=== PATIENT | female | born 1975 | race Hispanic/Latino ===

== ENCOUNTER → 2017-07-14 | Outpatient (CLI) | payer BC, SELFPAY | END | disposition home or self-care (01) | LOC: RAH 07:52 | PROVIDERS: ATTEND Internal Medicine | DX: M54.2 Cervicalgia (principal) | CPT/HCPCS: 72141 ==

== ENCOUNTER 2020-12-11 08:54 | Day surgery (SDC) | payer BC ==
[2020-12-05 12:35] LABS: BASOPHILS % (AUTO) 0.4 % (0.0-5.0); HEMATOCRIT 36.2 % (36-48); LYMPHOCYTES % (AUTO) 24.2 % (21.0-51.0); MEAN CORPUSCULAR HEMOGLOBIN 27.2 pg (27.0-33.0); MEAN CORPUSCULAR VOLUME 84.8 fL (79-99); MONOCYTES % (AUTO) 4.7 % (3.0-13.0); NEUTROPHILS % (AUTO) 69.4 % (40.0-77.0); PLATELET COUNT (AUTO) 434 K/uL (130-400); RED BLOOD CELL COUNT(AUTO) 4.27 MIL/uL (4.00-5.50); RED CELL DISTRIBUTION WIDTH 15.3 % (11.0-15.5); WHITE BLOOD COUNT (AUTO) 9.7 K/uL (4.8-10.8)
[2020-12-05 12:47] LABS: INR 0.97 (0.85-1.15); PROTHROMBIN TIME 10.6 SEC (9.6-11.6)
[2020-12-05 12:49] LABS: PARTIAL THROMBOPLASTIN TIME 29.7 SEC (26.3-35.5)
[2020-12-05 12:51] LABS: ALBUMIN 3.8 g/dL (3.5-5.0); BILIRUBIN,TOTAL 0.3 mg/dL (0.2-1.0); CREATININE 0.7 mg/dL (0.5-1.5); POTASSIUM 3.7 mmol/L (3.5-5.1)
[2020-12-10 09:51] VITALS: BP 158/84
[~2020-12-11] VITALS: Ht 149.9 cm; Wt 82.1 kg
[2020-12-11] VITALS (24 sets, daily range): BP systolic 108–140; BP diastolic 59–87
[~2020-12-11 08:54] MED LIST: ARNICA PO; CEFAZOLIN SODIUM 1 GM VIAL IVP SCH; CETI-89 PO; COLLAGEN PO; LOSA50TA64 PO; METRONIDAZOLE 500MG/100ML BAG 100 ML IVPB SCH; MVI PO; PHENAZOPYRIDINE HCL 200 MG TABLET PO SCH
[2020-12-11] MEDS ORDERED: LACTATED RINGERS 1000ML 1,000 ML IV ONE (09:22)
[2020-12-11] MEDS ORDERED: SCOPOLAMINE HYDROBROMIDE 1 EACH ADH..PATCH TD ONE (11:37)
[2020-12-11] MEDS ORDERED: LIDOCAINE PF 100MG/5ML (2%) SYRINGE 5ML ONE (11:41)
[2020-12-11] MEDS ORDERED: SUCCINYLCHOLINE 200MG/10ML SYR ONE (11:41)
[2020-12-11] MEDS ORDERED: PROPOFOL 10 MG/ML 20ML VIAL IV ONE (11:41)
[2020-12-11] MEDS ORDERED: FENTANYL CITRATE PF 50 MCG/1 ML 2ML VIAL ONE (11:41)
[2020-12-11] MEDS ORDERED: BUPIVACAINE LIPOSOME/PF 266 MG/20 ML ML IJ SCH (12:00)
[2020-12-11] MEDS ORDERED: MEPERIDINE-PF 25 MG/ML SYG ONE ×3 (14:00→15:10)
[2020-12-11] MEDS ORDERED: KETOROLAC 30MG VIAL (30MG/ML) ONE (14:27)
[2020-12-11] MEDS ORDERED: NEOSTIGMINE 5MG/5ML SYR IV ONE (14:27)
[2020-12-11] MEDS ORDERED: GLYCOPYRROLATE 1 MG/5 ML SYRINGE ONE (14:29)
[2020-12-11] MEDS ORDERED: ONDANSETRON 4MG INJ ONE (16:10)
[2020-12-11] MEDS ORDERED: ACETAMINOPHEN 500 MG TABLET ONE (16:10)
[2020-12-11] MEDS ORDERED: MORPHINE 10MG VIAL ONE (16:10)
== END 2020-12-11 18:15 | disposition home or self-care (01) ==
LOC: DAH 08:54
PROVIDERS: ATTEND Obstetrics & Gynecology
DX: N93.9 Abnormal uterine and vaginal bleeding, unspecified (principal); Z20.822 Contact with and (suspected) exposure to COVID-19; D25.9 Leiomyoma of uterus, unspecified; N72 Inflammatory disease of cervix uteri; N88.8 Other specified noninflammatory disorders of cervix uteri; I10 Essential (primary) hypertension; J45.909 Unspecified asthma, uncomplicated; E66.9 Obesity, unspecified; E11.9 Type 2 diabetes mellitus without complications; M79.7 Fibromyalgia; Z79.01 Long term (current) use of anticoagulants; Z90.49 Acquired absence of other specified parts of digestive tract; Z98.890 Other specified postprocedural states; Z83.3 Family history of diabetes mellitus; Z82.49 Family history of ischemic heart disease and other diseases of the circulatory system; Z80.0 Family history of malignant neoplasm of digestive organs; Z80.1 Family history of malignant neoplasm of trachea, bronchus and lung; Z98.891 History of uterine scar from previous surgery; Z79.899 Other long term (current) drug therapy
CPT/HCPCS: 58571; S2900; 36415; 80053; 84703; 85025; 85610; 85730; 86850; 86900; 86901; 87635; 96374; 96375; A4344; C9290; C9803; J0330; J0690; J1885; J2001; J2175; J2270; J2405; J2704; J2710; J3010; J3490; J7030; J7120

== ENCOUNTER 2023-08-21 05:31 | Emergency (ER) | payer BC ==
[~2023-08-21] VITALS: Ht 149.9 cm; Wt 80.7 kg
[~2023-08-21 05:31] MED LIST changes: -CEFAZOLIN SODIUM 1 GM VIAL IVP SCH; -METRONIDAZOLE 500MG/100ML BAG 100 ML IVPB SCH; -PHENAZOPYRIDINE HCL 200 MG TABLET PO SCH
[2023-08-21] MEDS ORDERED: LOSA50TA64 PO (05:41)
[2023-08-21] MEDS ORDERED: LISD20CA PO (05:42)
[2023-08-21] MEDS ORDERED: AMLO2.5T4 PO (05:42)
[2023-08-21] MEDS: ONDANSETRON 4MG INJ IVP ONE (05:57)
[2023-08-21] MEDS: LACTATED RINGERS 1000ML 1,000 ML IV ONE (05:57)
[2023-08-21 06:28] LABS: BASOPHILS # (AUTO) 0.03 K/uL (0.00-0.20); BASOPHILS % (AUTO) 0.2 % (0.0-5.0); EOSINOPHILS # (AUTO) 0.07 K/uL (0.00-0.70); EOSINOPHILS % (AUTO) 0.5 % (0.0-8.0); HEMATOCRIT 36.4 % (36-48); IMMATURE GRANULOCYTE ABSOLUTE 0.05 K/uL (0-1); LYMPHOCYTES # (AUTO) 1.8 K/uL (1.0-4.8); LYMPHOCYTES % (AUTO) 13.3 % (21.0-51.0); MEAN CORPUSCULAR HEMOGLOBIN 29.6 pg (27.0-33.0); MEAN CORPUSCULAR HGB CONC 33.5 g/dL (32.0-36.0); MEAN CORPUSCULAR VOLUME 88.3 fL (79-99); MONOCYTES # (AUTO) 0.7 K/uL (0.1-1.0); MONOCYTES % (AUTO) 5.1 % (3.0-13.0); NEUTROPHILS # (AUTO) 10.9 K/uL (1.8-7.7); NEUTROPHILS % (AUTO) 80.5 % (40.0-77.0); PLATELET COUNT (AUTO) 273 K/uL (130-400); RED BLOOD CELL COUNT(AUTO) 4.12 MIL/uL (4.00-5.50); RED CELL DISTRIBUTION WIDTH 13.5 % (11.0-15.5); WHITE BLOOD COUNT (AUTO) 13.5 K/uL (4.8-10.8)
[2023-08-21 06:34] LABS: ALBUMIN 3.6 g/dL (3.5-5.0); BILIRUBIN,TOTAL 0.4 mg/dL (0.2-1.0); CREATININE 0.7 mg/dL (0.5-1.0); POTASSIUM 3.6 mmol/L (3.5-5.1); TOTAL PROTEIN, SERUM 7.4 g/dL (6.0-8.3)
[2023-08-21 06:39] LABS: INR <= 0.93 (0.85-1.15)
[2023-08-21 06:40] LABS: PARTIAL THROMBOPLASTIN TIME 20.7 SEC (26.3-35.5)
[2023-08-21] MEDS: KETOROLAC 15MG/ML VIAL (15MG/ML) IV ONE (07:25)
[2023-08-21 08:19] LABS: APPEARANCE,URINE CLEAR (CLEAR); BILIRUBIN,URINE NEGATIVE (NEGATIVE); COLOR,URINE LIGHT-YELLOW (YELLOW); GLUCOSE, URINE (UA) NEGATIVE (NEGATIVE); KETONES,URINE NEGATIVE (NEGATIVE); LEUKOCYTE ESTERASE ,URINE NEGATIVE Leu/uL (NEGATIVE); NITRATE,URINE NEGATIVE (NEGATIVE); OCCULT BLOOD,URINE NEGATIVE (NEGATIVE); PROTEIN,URINE NEGATIVE (NEGATIVE); UROBILINOGEN,URINE 0.2 mg/dL (0.2-1.0)
[2023-08-21 08:25] LABS: BACTERIA,URINE RARE /HPF (None Seen); MUCUS,URINE RARE LPF (None Seen); SQUAMOUS EPITHELIAL CELL,UR RARE /HPF (0-2); WBC,URINE 0-1 /HPF (0-1)
[2023-08-21] MEDS ORDERED: ONDA4TAB10 SL (09:51)
[2023-08-21] MEDS ORDERED: IBUP-2070 PO (09:51)
[2023-08-21 10:10] VITALS: BP 136/72; PULSE 79; RESP 16; O2SAT 97
== END 2023-08-21 10:27 | disposition home or self-care (01) ==
LOC: EDH 05:31
DX: G43.909 Migraine, unspecified, not intractable, without status migrainosus (principal); E86.0 Dehydration; R11.2 Nausea with vomiting, unspecified; I10 Essential (primary) hypertension; D69.6 Thrombocytopenia, unspecified; J45.909 Unspecified asthma, uncomplicated; Z79.899 Other long term (current) drug therapy; Z98.890 Other specified postprocedural states
CPT/HCPCS: 99284; 96374; 70450; 71045; 96375; 84484; 80053; 83690; 85025; 85610; 85730; 81001; 36415; 93005; J7120; J2405; J1885